=== PATIENT | male | born 1955 | race African-American/Black ===

== ENCOUNTER 2024-10-24 17:53 | Emergency (ER) | payer BC, OTHER ==
[2024-10-24 18:26] LABS: Absolute Basophils 0.1 K/uL (0-0.5); Absolute Eosinophils 0.3 K/uL (0-0.5); Absolute Lymphocytes (CBC) 1.5 K/uL (0.7-4.9); Absolute Monocytes 0.7 K/uL (0.1-1.3); Absolute Neutrophil 6.3 K/uL (1.8-8.0); Basophils % 0.9 % (0-1.3); Eosinophils % 3.9 % (0-4.4); Hematocrit 41.7 % (39.6-49.0); Hemoglobin 14.7 g/dL (13.6-17.9); MCH 28.6 pg (27.0-35.0); MCHC 35.2 g/dL (32.0-36.0); MCV 81.2 fL (80-100); MPV 7.9 fL (7.6-11.3); Monocytes % 7.6 % (3.3-12.3); Neutrophils % 70.6 % (41.7-73.7); Nucleated Red Blood Cells % 0.2 % (0-0); Platelets 423 thou/uL (152-406); RBC Red Blood Cell Count 5.13 M/uL (4.33-5.43); Red Cell Distribution Width 17.7 % (12.1-15.2)
[2024-10-24 18:33] LABS: PT Prothrombin Time 13.3 SECONDS (9.4-12.5); Protime INR 1.27
--- NOTE | 2024-10-24 18:41 | RAD REPORT ---
EXAM: CT brain without contrast HISTORY: Slurred speech. COMPARISON: None TECHNIQUE: Multiple contiguous axial images were obtained and a CT of the brain without contrast. Sagittal and coronal reformats were performed. Automated exposure control, adjustment of the mA and/or kV according to patient size, and/or itera tive reconstruction. Unless otherwise specified, incidental findings do not require dedicated imaging follow-u FINDINGS: An intracranial bleed is not seen Ventricles are normal caliber No extra-axial fluid collection noted 1 cm low-density area deep white matter left cerebrum probably old infarct. Mild additional low-density deep white matter bilaterally represent ischemic changes secondary to sma ll vessel disease No fluid within the visualized sinuses or mastoids noted. IMPRESSION: No acute intracranial abnormality noted. If the patient's symptoms persist MRI of the brain would be recommended. from the emergency room was notified at 6:37 PM October 24, 2024
[2024-10-24] MEDS ORDERED: FAMOTIDINE 20 MG/2 ML VIAL IV ONE (18:42)
[2024-10-24] MEDS ORDERED: FOLIC ACID 5 MG/ML VIAL ONE (18:43)
[2024-10-24] MEDS ORDERED: NA CHLORIDE 0.9% 1,000 ML ONE (18:43)
[2024-10-24 18:47] LABS: Albumin 3.5 g/dL (3.4-5.0); Anion Gap 9.6 mEq/L (5.0-15.0); Bilirubin Direct 0.2 mg/dL (0-0.2); Bilirubin Indirect, Calculated 0.2 mg/dL (0.2-0.8); Bilirubin Total 0.4 mg/dL (0.2-1.0); Globulin 3.6 g/dL (2.3-3.5); Magnesium 1.9 mg/dL (1.6-2.4); Potassium 3.6 mEq/L (3.5-5.1); Protein, Total 7.1 g/dL (6.4-8.2); Troponin High Sensitivity 5.3 pg/mL (<58.9)
--- NOTE | 2024-10-24 19:00 | RAD REPORT ---
EXAMINATION: CTA HEAD CLINICAL INDICATION: Slurred speech TECHNIQUE: Axial CT images were obtained through the head after 100 cc Isovue-370 intravenous contras t utilizing angiographic protocol with 3D post-processing (maximum intensity projection images, volume rendered images and/or shaded surface rendered images). One or more of the following dose red uction techniques were used: Automated exposure control, adjustment of the mA and/or kV according to patient size, and/or iterative reconstruction. Unless otherwise specified, incidental findings do not require dedicated imaging follow-up. COMPARISON: None FINDINGS: Distal internal carotid, basilar, anterior cerebral, middle cerebral and posterior cerebral arteries do not demonstrate a significant stenosis origin left posterior cerebral artery An aneurysm not noted. No large vessel occlusion IMPRESSION: No acute vascular abnormality displayed
--- NOTE | 2024-10-24 19:00 | RAD REPORT ---
EXAMINATION: Neck Angio CLINICAL INDICATION: Slurred speech TECHNIQUE: Axial CT images were obtained from the aortic arch to the skull base after intravenous adm inistration of 100 cc Isovue-370 utilizing angiographic protocol. Multiplanar reformats, as well as 3D post-processing (maximum intensity projection images, volume rendered images and/or shaded surface rendered images) were generated and reviewed. One or more of the following dose reduction techniques were used: Automated exposure control, adjustment of the mA and/or kV according to patient size, and/or iterative reconstruction. Unless otherwise specified, incidental findings do not require dedicated imaging follow-up. COMPARISON: No prior exam. FINDINGS: The visualized aortic arch and great vessels do not demonstrate a significant abnormality Mild plaque within the common carotid, internal carotid and external carotid arteries bilaterally. Vertebral arteries unremarkable No significant stenosis noted. A dissection is not seen. Methods for NASCET criteria: Mild stenosis, 0% to 49%; Moderate stenosis 50% to 69%; Severe stenosis, 70% to 99% IMPRESSION: No acute vascular abnormality displayed
--- NOTE | 2024-10-24 19:10 | EDPHYS ---
Physician Documentation [facility] Name: Brown Rios III Age: 69 yrs Sex: Male : 1955 Arrival Date: 10/24/2024 Time: 17:53 Bed 15 Private MD: ED Physician Cl Noland HPI: 10/24 18:24 This 69 yrs old Black Male presents to ER via EMS with complaints of Weakness, Slurred jose Speech. 18:24 The patient presents to the emergency department with weakness of the left lower jose extremity, right lower extremity, a speech or higher order brain function problem, difficulty standing, the patient cannot stand, the patient is off balance, difficult walking, the patient is off balance. Onset: The symptoms/episode began/occurred 1 day(s) ago. Context: occurred at home. Associated signs and symptoms: Pertinent positives: dizziness, weakness. Severity of symptoms: At their worst the symptoms were mild moderate in the emergency department the symptoms are unchanged. Severity of symptoms: At their worst the symptoms were. Patient's baseline: Neuro: alert and fully oriented. Current symptoms: Currently, the patient is not experiencing any symptoms, LEGS WEAK . The patient has experienced a previous episode, approximately 4 years ago. Historical: - Allergies: 17:54 PENICILLINS; db 17:54 Codeine; db - Home Meds: 17:54 escitalopram oxalate 20 mg oral tablet 1 tab daily [Active]; Ambien 10 mg Oral tablet db [Active]; Xanax 5 MG Oral [Active]; Dexilant 60 mg oral capsule,delayed release,biphasic [Active]; donepezil 5 mg oral tablet [Active]; carvedilol 12.5 mg oral tablet 2 tabs 2 times per day [Active]; Nifedipine ER Oral 30 mg twice a day [Active]; clopidogrel 75 mg oral tablet 1 tab once [Active]; atorvastatin 40 mg oral tablet every day at bedtime [Active]; memantine 10 mg oral tablet 2 tab once [Active]; aspirin 81 mg Oral capsule 2 caps daily [Active]; amitriptyline 25 mg Oral tablet 2 times per day [Active]; bupropion HCl 150 mg Oral Tablet, Extended Release 24 hr [Active]; - PMHx: 17:54 Hypertensive disorder; Diabetes mellitus; Atrial fibrillation; Transient cerebral db ischemia; - Immunization history:: Adult Immunizations unknown. - Infectious Disease History:: Denies. - Social history:: Smoking status: Patient reports the use of cigarette tobacco products, smokes one-half pack cigarettes per day. - Family history:: not pertinent. ROS: 18:20 Constitutional: Negative for fever, chills, and weight loss, Eyes: Negative for injury, jose pain, redness, and discharge, ENT: Negative for injury, pain, and discharge, Neck: Negative for injury, pain, and swelling, Cardiovascular: Negative for chest pain, palpitations, and edema, Respiratory: Negative for shortness of breath, cough, wheezing, and pleuritic chest pain, Abdomen/GI: Negative for abdominal pain, nausea, vomiting, diarrhea, and constipation, Back: Negative for injury and pain, : Negative for injury, bleeding, discharge, and swelling, MS/Extremity: Negative for injury and deformity, Skin: Negative for injury, rash, and discoloration, Psych: Negative for depression, anxiety, suicide ideation, homicidal ideation, and hallucinations, Allergy/Immunology: Negative for hives, rash, and allergies, Endocrine: Negative for neck swelling, polydipsia, polyuria, polyphagia, and marked weight changes, 18:20 Neuro: Positive for speech changes, weakness, of the right arm, right leg and left leg, Exam: 18:20 Constitutional: This is a well developed, well nourished patient who is awake, alert, jose and in no acute distress. Head/Face: Normocephalic, atraumatic. Eyes: Pupils equal round and reactive to light, extra-ocular motions intact. Lids and lashes normal. Conjunctiva and sclera are non-icteric and not injected. Cornea within normal limits. Periorbital areas with no swelling, redness, or edema. ENT: Nares patent. No nasal discharge, no septal abnormalities noted. Tympanic membranes are normal and external auditory canals are clear. Oropharynx with no redness, swelling, or masses, exudates, or evidence of obstruction, uvula midline. Mucous membranes moist. Neck: Trachea midline, no thyromegaly or masses palpated, and no cervical lymphadenopathy. Supple, full range of motion without nuchal rigidity, or vertebral point tenderness. No Meningismus. Chest/axilla: Normal chest wall appearance and motion. Nontender with no deformity. No lesions are appreciated. Cardiovascular: Regular rate and rhythm with a normal S1 and S2. No gallops, murmurs, or rubs. Normal PMI, no JVD. No pulse deficits. Respiratory: Lungs have equal breath sounds bilaterally, clear to auscultation and percussion. No rales, rhonchi or wheezes noted. No increased work of breathing, no retractions or nasal flaring. Abdomen/GI: Soft, non-tender, with normal bowel sounds. No distension or tympany. No guarding or rebound. No evidence of tenderness throughout. Back: No spinal tenderness. No costovertebral tenderness. Full range of motion. Male : Normal genitalia with no discharge or lesions. Skin: Warm, dry with normal turgor. Normal color with no rashes, no lesions, and no evidence of cellulitis. MS/ Extremity: Pulses equal, no cyanosis. Neurovascular intact. Full, normal range of motion., bilateral aka Psych: Awake, alert, with orientation to person, place and time. Behavior, mood, and affect are within normal limits. 18:20 ECG was reviewed by the Attending Physician. 18:20 Neuro: Orientation: appropriate for stated age, no acute changes, Mentation: is normal, appropriate for stated age, no acute changes, Memory: is normal, appropriate for stated age, no acute changes, Cranial nerves: grossly normal, is grossly normal based on the patient's age, no acute changes, Cerebellar function: is grossly normal, unable to test, Motor: moves all fours, strength is 4/5 in the right leg and left leg, Sensation: is normal, no obvious gross deficits, appropriate no acute changes, Gait: not tested. seizure activity, is not displayed by the patient, Vital Signs: 18:01 BP 122 / 69; Pulse 77; Resp 16; Temp 98; Pulse Ox 95% ; Weight 104.33 kg; Height 5 ft. db 11 in. ; 19:38 BP 130 / 90; Pulse 81; Resp 18; Pulse Ox 99% on R/A; rg5 20:00 BP 138 / 86; Pulse 84; Resp 18; Pulse Ox 96% on R/A; Pain 0/10; rg5 21:00 BP 144 / 83; Pulse 80; Resp 18; Pulse Ox 97% on R/A; rg5 22:01 BP 145 / 85; Pulse 79; Resp 17; Temp 98.3; Pulse Ox 96% on R/A; Pain 0/10; rg5 18:01 Body Mass Index 32.08 (104.33 kg, 180.34 cm) db 20:00 Pain Scale: Adult rg5 22:01 Pain Scale: Adult rg5 NIH Stroke Scale Scores: 18:10 NIHSS Score: 1 db 18:48 NIHSS Score: 5 jose [place] Coma Score: 18:20 Eye Response: spontaneous(4). Motor Response: obeys commands(6). Verbal Response: jose oriented(5). Total: 15. MDM: 18:02 Medical Screening Exam initiated jose 18:26 Data reviewed: vital signs, nurses notes, EMS record, lab test result(s), EKG, jose radiologic studies, CT scan, plain films. Consideration of Admission/Observation Escalation of care including admission/observation considered. I considered the following discharge prescriptions or medication management in the emergency department Medications were administered in the Emergency Department. See MAR. Independent interpretation of the following test(s) in the Emergency Department EKG: See my EKG interpretation above. Test considered but Not performed: MRI: NO MRI AVALIABLE. Historians other than the Patient: EMS: EMS WELL INFORMED. Family Member: AND DAUGHTER. Care significantly affected by the following chronic conditions: Diabetes, Hypertension, Obesity, CVA, A FIB. 18:48 ED course: NOT A TNK PATIENT , BEGAN YESTERDAY. [facility] 10/24 18:12 Order name: Basic Metabolic Panel; Complete Time: 19:02 [facility] 10/24 18:12 Order name: CBC with Diff; Complete Time: 19:02 [facility] 10/24 18:12 Order name: LFT's; Complete Time: 19:02 [facility] 10/24 18:12 Order name: Magnesium; Complete Time: 19:02 [facility] 10/24 18:12 Order name: NT PRO-BNP; Complete Time: 19:02 [facility] 10/24 18:12 Order name: PT-INR; Complete Time: 19:02 [facility] 10/24 18:12 Order name: Troponin HS; Complete Time: 19:02 [facility] 10/24 18:12 Order name: Lipase; Complete Time: 19:02 [facility] 10/24 18:12 Order name: Urinalysis w/ reflexes [facility] 10/24 18:21 Order name: Glucose, Ancillary Testing; Complete Time: 19:02 [facility] 10/24 18:12 Order name: XRAY Chest (1 view); Complete Time: 19:38 jose 10/24 18:12 Order name: CT Stroke Brain w/o Contrast; Complete Time: 19: [facility] 10/24 18:12 Order name: CT Head Angio; Complete Time: 19: [facility] 10/24 18:12 Order name: CT Neck Angio; Complete Time: 19:02 [facility] 10/24 18:12 Order name: Cardiac monitoring; Complete Time: 19:18 [facility] 10/24 18:12 Order name: EKG - Nurse/Tech; Complete Time: 19:18 [facility] 10/24 18:12 Order name: IV Saline Lock; Complete Time: 19:18 [facility] 10/24 18:12 Order name: Labs collected and sent; Complete Time: :18 [facility] 10/24 18:12 Order name: O2 Per Protocol; Complete Time: 19:18 [facility] 10/24 18:12 Order name: O2 Sat Monitoring; Complete Time: 19:18 [facility] EC:20 Rate is 76 beats/min. Rhythm is regular. QRS [place] is Normal. OK interval is normal. QRS jose interval is normal. QT interval is normal. No Q waves. T waves are Normal. T waves are Inverted in leads V5, V6. ST Segment is depressed in leads III, aVF. Clinical impression: NSR w/ Non-specific ST/T Changes. Administered Medications: 19:23 Drug: NS 0.9% IV 1000 ml IV at 1000 ml once; to be given as a bolus over 60 minutes rg5 Route: IV; Rate: 1000 ml; Site: right antecubital; 22:00 Follow up: IV Status: Completed infusion; IV Intake: 1000ml rg5 19:23 Drug: foLIC Acid IVPB 1 mg IVPB once Route: IVPB; Site: right antecubital; rg5 19:35 Follow up: IV Status: Completed infusion rg5 19:24 Drug: Famotidine IVP 20 mg IVP once; dilute with 10 mL 0.9% NaCl; give over 2 minutes rg5 Route: IVP; Site: right antecubital; 19:35 Follow up: Response: No adverse reaction rg5 19:36 Not Given (Patient Refused): [id number] mg PO once; GIVE IF NOT TAKEN TODAY rg5 19:51 Drug: Mucomyst - Acetylcysteine PO 600 mg PO once Route: PO; rg5 22:00 Follow up: Response: No adverse reaction rg5 19:51 Drug: Lovenox Sub-Q 40 mg Sub-Q once Route: Sub-Q; Site: right lower abdomen; rg5 22:00 Follow up: Response: No adverse reaction rg5 19:51 Drug: Aspirin PO Chewable Tablet 162 mg PO once Route: PO; rg5 21:59 Follow up: Response: No adverse reaction rg5 Point of Care Testing: Blood Glucose: 17:54 Blood Glucose: 110 mg/dL; db Ranges: Critical Glucose Levels:Adult <50 mg/dl or >400 mg/dl <40 mg/dl or >180 mg/dl Disposition Summary: 10/24/24 19:10 Transfer Ordered Notes: Transfer Location: [facility] jose Reason: Higher level of care jose Condition: Fair jose Problem: new jose Symptoms: are unchanged jose Accepting Physician: TO [facility](10/24/24 22:10) rg5 Diagnosis - Weakness jose - Aphasia jose - Cerebral infarction, unspecified - GREATER THAN 24 HR jose - Obesity, unspecified jose Forms: - Medication Reconciliation Form jose - SBAR form jose NIH Stroke Scale - NIH Stroke Score Date: 10/24/2024 Time: 18:10 Total Score = 1 10. Dysarthria (speech clarity - read or repeat words) - 1(Mild to Moderate) 11. Extinction and Inattention (visual/tactile/auditory/spatial/personal) - 0(No abnormality) 1a. Level of Consciousness (LOC) - 0(Alert) 1b. Level of Consciousness (LOC) (Month \T\ Age) - 0(Both) 1c. LOC Commands (Open \T\ Closes Eyes/Fiberglass Insulation Installer) - 0(Both) 2. Best Gaze (Lateral Gaze Paresis) - 0(Normal) 3. Visual Field Loss - 0(No visual loss) 4. Facial Palsy - 0(Normal) 5a. Left Arm: Motor (10-second hold) - 0(No drift) 5b. Right Arm: Motor (10-second hold) - 0(No drift) 6a. Left Leg: Motor (5-second hold - always test supine) - 0(No drift) 6b. Right Leg: Motor (5-second hold - always test supine) - 0(No drift) 7. Limb Ataxia (finger/nose \T\ heel/davis - test with eyes open) - 0(Absent) 8. Sensory Loss (pinprick arms/legs/face) - 0(Normal) 9. Best Language: Aphasia (description/naming/reading) - 0(No aphasia) Initials: [place] NIH Stroke Scale - NIH Stroke Score Date: 10/24/2024 Time: 18:48 Total Score = 5 10. Dysarthria (speech clarity - read or repeat words) - 0(Normal) 11. Extinction and Inattention (visual/tactile/auditory/spatial/personal) - 0(No abnormality) 1a. Level of Consciousness (LOC) - 0(Alert) 1b. Level of Consciousness (LOC) (Month \T\ Age) - 0(Both) 1c. LOC Commands (Open \T\ Closes Eyes/Fiberglass Insulation Installer) - 0(Both) 2. Best Gaze (Lateral Gaze Paresis) - 0(Normal) 3. Visual Field Loss - 0(No visual loss) 4. Facial Palsy - 0(Normal) 5a. Left Arm: Motor (10-second hold) - 0(No drift) 5b. Right Arm: Motor (10-second hold) - 0(No drift) 6a. Left Leg: Motor (5-second hold - always test supine) - 1(Drift) 6b. Right Leg: Motor (5-second hold - always test supine) - 1(Drift) 7. Limb Ataxia (finger/nose \T\ heel/davis - test with eyes open) - 2(Present in two limbs) 8. Sensory Loss (pinprick arms/legs/face) - 0(Normal) 9. Best Language: Aphasia (description/naming/reading) - 1(Mild to moderate aphasia) Initials: jose Signatures: Dispatcher [employer] EDCl Villeda MD MD cha Benton, Danielle, RN RN db Janak Flores RN RN rg5 Corrections: (The following items were deleted from the chart) 18:12 18:12 BASIC METABOLIC PANEL+C.LAB.BRZ ordered. EDMS EDMS 18:12 18:12 CBC+H.LAB.BRZ ordered. EDMS EDMS 18:12 18:12 HEPATIC FUNCTION+C.LAB.BRZ ordered. EDMS EDMS 18:12 18:12 MAGNESIUM+C.LAB.BRZ ordered. EDMS EDMS 18:12 18:12 PROBNP+C.LAB.BRZ ordered. EDMS EDMS 18:12 18:12 PROTIME (+INR)+COAG.LAB.BRZ ordered. EDMS EDMS 18:12 18:12 Troponin High Sensitivity+C.LAB.BRZ ordered. EDMS EDMS 18:12 18:12 LIPASE+C.LAB.BRZ ordered. EDMS EDMS 18:12 18:12 Urinalysis+U.LAB.BRZ ordered. EDMS EDMS 18:13 18:13 Chest Single View+RAD.RAD.BRZ ordered. EDMS EDMS 18:13 18:13 CT-STROKE BRAIN W/O CONTRAST+CT.RAD.BRZ ordered. EDMS EDMS 18:13 18:13 Head Angio+CT.RAD.BRZ ordered. EDMS EDMS 18:13 18:13 Neck Angio+CT.RAD.BRZ ordered. EDMS EDMS 22:10 19:10 [facility] jose rg5
--- NOTE | 2024-10-24 19:10 | ER ---
Nurse's Notes [facility] Name: Brown Rios III Age: 69 yrs Sex: Male : 1955 Arrival Date: 10/24/2024 Time: 17:53 Bed 15 Private MD: Diagnosis: Weakness;Aphasia;Cerebral infarction, unspecified-GREATER THAN 24 HR;Obesity, unspecified Presentation: 10/24 18:01 Chief complaint: EMS states: SLURRED SPEECH, LEFT SIDE AND HAND WEAKNESS X 1 DAY db GETTING WORSE. PER FAMILY HX OF STROKE IN PAST WITH RIGHT HAND WEAKNESS. PT CAN NORMALLY WALK BUT HAD DIFFICULTY WALKING TODAY. STARTED NEW MEDICATION BUPROPRION AND THEN SYMPTOMS STARTED. Coronavirus screen: Client denies travel out of the [place] in the last 14 days. At this time, the client does not indicate any symptoms associated with coronavirus-19. Ebola Screen: Patient negative for fever greater than or equal to 101.5 degrees Fahrenheit, and additional compatible Ebola Virus Disease symptoms Patient denies exposure to infectious person. Patient denies travel to an Ebola-affected area in the 21 days before illness onset. No symptoms or risks identified at this time. The patients blood glucose was checked before arriving to the hospital and was found to be normal. Initial Sepsis Screen: Does the patient meet any 2 criteria? No. Patient's initial sepsis screen is negative. Does the patient have a suspected source of infection? No. Patient's initial sepsis screen is negative. Risk Assessment: Do you want to hurt yourself or someone else? Patient reports no desire to harm self or others. Onset of symptoms was October 23, 2024. Care prior to arrival: IV initiated. 20 GA, in the right antecubital area, Glucose check: 102. 18:01 Method Of Arrival: EMS[facility] db 18:01 Acuity: KAMLA 2 db Triage Assessment: 17:54 The onset of the patients symptoms was October 23, 2024 at 12:00. General: Appears in db no apparent distress. comfortable, Behavior is calm, cooperative. Pain: Denies pain. Neuro: Level of Consciousness is awake, alert, obeys commands, Oriented to person, place, time, situation, Weakness in left hand(s) Speech is slurred, Facial symmetry appears normal, Pupils are PERRLA, pinpoint, Reports weakness. Stroke Activation: Symptom onset > 6 hours Physician: ED Attending; Name: ; Notified At: ; Arrived At: Physician: Mid-Level Provider; Name: ; Notified At: ; Arrived At: Physician: [not used]; Name: ; Notified At: ; Arrived At: Physician: [not used]; Name: ; Notified At: ; Arrived At: Physician: [not used]; Name: ; Notified At: ; Arrived At: Historical: - Allergies: 17:54 PENICILLINS; db 17:54 Codeine; db - Home Meds: 17:54 escitalopram oxalate 20 mg oral tablet 1 tab daily [Active]; Ambien 10 mg Oral tablet db [Active]; Xanax 5 MG Oral [Active]; Dexilant 60 mg oral capsule,delayed release,biphasic [Active]; donepezil 5 mg oral tablet [Active]; carvedilol 12.5 mg oral tablet 2 tabs 2 times per day [Active]; Nifedipine ER Oral 30 mg twice a day [Active]; clopidogrel 75 mg oral tablet 1 tab once [Active]; atorvastatin 40 mg oral tablet every day at bedtime [Active]; memantine 10 mg oral tablet 2 tab once [Active]; aspirin 81 mg Oral capsule 2 caps daily [Active]; amitriptyline 25 mg Oral tablet 2 times per day [Active]; bupropion HCl 150 mg Oral Tablet, Extended Release 24 hr [Active]; - PMHx: 17:54 Hypertensive disorder; Diabetes mellitus; Atrial fibrillation; Transient cerebral db ischemia; - Immunization history:: Adult Immunizations unknown. - Infectious Disease History:: Denies. - Social history:: Smoking status: Patient reports the use of cigarette tobacco products, smokes one-half pack cigarettes per day. - Family history:: not pertinent. Screenin:10 [facility] ED Fall Risk Assessment (Adult) History of falling in the last 3 months, db including since admission No falls in past 3 months (0 pts) Confusion or Disorientation No (0 pts) Intoxicated or Sedated No (0 pts) Impaired Gait Yes (1 pt) Mobility Assist Device Used No (0 pt) Altered Elimination No (0 pt) Score/Fall Risk Level 0 - 2 = Low Risk Oriented to surroundings, Maintained a safe environment. Abuse screen: Denies threats or abuse. Denies injuries from another. Nutritional screening: No deficits noted. Tuberculosis screening: No symptoms or risk factors identified. Assessment: 18:10 TNKase (Tenecteplase) Screening: Not Applicable. Reassessment: Patient appears in no db apparent distress at this time. Patient and/or family updated on plan of care and expected duration. Pain level reassessed. Patient is alert, oriented x 3, equal unlabored respirations, skin warm/dry/pink. General: Appears in no apparent distress. comfortable, Behavior is calm, cooperative. Neuro: Level of Consciousness is awake, alert, obeys commands, Oriented to person, place, time, situation. Respiratory: Airway is patent Respiratory effort is even, unlabored, Respiratory pattern is regular, symmetrical. 19:10 Wendel Swallow Protocol 3 oz Water Swallow Challenge:. Wendel Swallow Protocol Exclusion rg5 Criteria: Exclusion Criteria Result: Proceed Brief Cognitive Screen What is your name? Normal, Where are you right now? Normal, What year is it? Normal. Oral Mechanism Examination Facial Symmetry: Normal, Motion: Normal, Lip Closure: Normal, Oral Mechanism Result: Normal. Result: PASS MD Notified: Cl Noland MD. 19:10 VAN Scoring: Arm Drift: Patients demonstrates NO arm weakness. Patient is VAN Negative. rg5 Aphasia: No aphasia noted. Neglect: No neglect noted. Vital Signs: 18:01 BP 122 / 69; Pulse 77; Resp 16; Temp 98; Pulse Ox 95% ; Weight 104.33 kg; Height 5 ft. db 11 in. ; 19:38 BP 130 / 90; Pulse 81; Resp 18; Pulse Ox 99% on R/A; rg5 20:00 BP 138 / 86; Pulse 84; Resp 18; Pulse Ox 96% on R/A; Pain 0/10; rg5 21:00 BP 144 / 83; Pulse 80; Resp 18; Pulse Ox 97% on R/A; rg5 22:01 BP 145 / 85; Pulse 79; Resp 17; Temp 98.3; Pulse Ox 96% on R/A; Pain 0/10; rg5 18:01 Body Mass Index 32.08 (104.33 kg, 180.34 cm) db 20:00 Pain Scale: Adult rg5 22:01 Pain Scale: Adult rg5 Tyree Coma Score: 18:20 Eye Response: spontaneous(4). Motor Response: obeys commands(6). Verbal Response: jose oriented(5). Total: 15. NIH Stroke Scale Scores: 18:10 NIHSS Score: 1 db 18:48 NIHSS Score: 5 jose ED Course: 17:54 Arm band placed on Patient placed in an exam room. db 18:01 Patient arrived in ED. db 18:02 Cl Noland MD is Attending Physician. jose 18:04 Triage completed. db 18:10 Patient has correct armband on for positive identification. Bed in low position. Call db light in reach. Side rails up X2. Client placed on continuous cardiac and pulse oximetry monitoring. NIBP monitoring applied. air sampling and monitoring on. Pulse ox on. NIBP on. Warm blanket given. Pillow given. 18:[address] db 18:29 Bety Rolle, RN is Primary Nurse. db 18:30 Initial lab(s) drawn, by me, sent to lab. EKG done. Maintain EMS IV. Dressing intact. db Good blood return noted. Site clean \T\ dry. Gauge \T\ site: 20 G RAC. 18:35 CT Stroke Brain w/o Contrast In Process Unspecified. EDMS 18:52 CT Head Angio In Process Unspecified. EDMS 18:52 CT Neck Angio In Process Unspecified. EDMS 19:10 XRAY Chest (1 view) In Process Unspecified. EDMS 19:10 Patient has correct armband on for positive identification. Bed in low position. Call rg5 light in reach. Side rails up X2. Client placed on continuous cardiac and pulse oximetry monitoring. NIBP monitoring applied. air sampling and monitoring on. Pulse ox on. NIBP on. Door closed. Noise minimized. Moved to private room. Warm blanket given. Pillow given. 19:10 No provider procedures requiring assistance completed. rg5 19:23 Janak Flores, RN is Primary Nurse. rg5 21:13 Urinalysis w/ reflexes Sent. vc1 Administered Medications: 19:23 Drug: NS 0.9% IV 1000 ml IV at 1000 ml once; to be given as a bolus over 60 minutes rg5 Route: IV; Rate: 1000 ml; Site: right antecubital; 22:00 Follow up: IV Status: Completed infusion; IV Intake: 1000ml rg5 19:23 Drug: foLIC Acid IVPB 1 mg IVPB once Route: IVPB; Site: right antecubital; rg5 19:35 Follow up: IV Status: Completed infusion rg5 19:24 Drug: Famotidine IVP 20 mg IVP once; dilute with 10 mL 0.9% NaCl; give over 2 minutes rg5 Route: IVP; Site: right antecubital; 19:35 Follow up: Response: No adverse reaction rg5 19:36 Not Given (Patient Refused): [id number] mg PO once; GIVE IF NOT TAKEN TODAY rg5 19:51 Drug: Mucomyst - Acetylcysteine PO 600 mg PO once Route: PO; rg5 22:00 Follow up: Response: No adverse reaction rg5 19:51 Drug: Lovenox Sub-Q 40 mg Sub-Q once Route: Sub-Q; Site: right lower abdomen; rg5 22:00 Follow up: Response: No adverse reaction rg5 19:51 Drug: Aspirin PO Chewable Tablet 162 mg PO once Route: PO; rg5 21:59 Follow up: Response: No adverse reaction rg5 Medication: 18:10 VIS not applicable for this client. db Point of Care Testing: Blood Glucose: 17:54 Blood Glucose: 110 mg/dL; db Ranges: Intake: 22:00 IV: 1000ml; Total: 1000ml. rg5 Outcome: 19:10 ER care complete, transfer ordered by . jose 22:10 Patient left the ED. rg5 NIH Stroke Scale - NIH Stroke Score Date: 10/24/2024 Time: 18:10 Total Score = 1 10. Dysarthria (speech clarity - read or repeat words) - 1(Mild to Moderate) 11. Extinction and Inattention (visual/tactile/auditory/spatial/personal) - 0(No abnormality) 1a. Level of Consciousness (LOC) - 0(Alert) 1b. Level of Consciousness (LOC) (Month \T\ Age) - 0(Both) 1c. LOC Commands (Open \T\ Closes Eyes/Microarray Specialist) - 0(Both) 2. Best Gaze (Lateral Gaze Paresis) - 0(Normal) 3. Visual Field Loss - 0(No visual loss) 4. Facial Palsy - 0(Normal) 5a. Left Arm: Motor (10-second hold) - 0(No drift) 5b. Right Arm: Motor (10-second hold) - 0(No drift) 6a. Left Leg: Motor (5-second hold - always test supine) - 0(No drift) 6b. Right Leg: Motor (5-second hold - always test supine) - 0(No drift) 7. Limb Ataxia (finger/nose \T\ heel/davis - test with eyes open) - 0(Absent) 8. Sensory Loss (pinprick arms/legs/face) - 0(Normal) 9. Best Language: Aphasia (description/naming/reading) - 0(No aphasia) Initials: [place] NIH Stroke Scale - NIH Stroke Score Date: 10/24/2024 Time: 18:48 Total Score = 5 10. Dysarthria (speech clarity - read or repeat words) - 0(Normal) 11. Extinction and Inattention (visual/tactile/auditory/spatial/personal) - 0(No abnormality) 1a. Level of Consciousness (LOC) - 0(Alert) 1b. Level of Consciousness (LOC) (Month \T\ Age) - 0(Both) 1c. LOC Commands (Open \T\ Closes Eyes/Microarray Specialist) - 0(Both) 2. Best Gaze (Lateral Gaze Paresis) - 0(Normal) 3. Visual Field Loss - 0(No visual loss) 4. Facial Palsy - 0(Normal) 5a. Left Arm: Motor (10-second hold) - 0(No drift) 5b. Right Arm: Motor (10-second hold) - 0(No drift) 6a. Left Leg: Motor (5-second hold - always test supine) - 1(Drift) 6b. Right Leg: Motor (5-second hold - always test supine) - 1(Drift) 7. Limb Ataxia (finger/nose \T\ heel/davis - test with eyes open) - 2(Present in two limbs) 8. Sensory Loss (pinprick arms/legs/face) - 0(Normal) 9. Best Language: Aphasia (description/naming/reading) - 1(Mild to moderate aphasia) Initials: jose Signatures: Dispatcher [employer] Cl Rios MD MD cha Calcote, Vanessa, RN RN vc1 Bety Rolle RN RN db Janak Flores RN RN rg5
--- NOTE | 2024-10-24 19:20 | RAD REPORT ---
Procedure: Chest Single View HISTORY: Cough COMPARISON: 2013 FINDINGS: The lungs appear clear of acute infiltrate. No significant pleural effusion noted. The heart appears upper limits normal size. IMPRESSION: No acute abnormality is displayed.
[2024-10-24] MEDS ORDERED: ENOXAPARIN 40 MG/0.4 ML SQ ONE (19:42)
[2024-10-24] MEDS ORDERED: ASPIRIN 81 MG CHEWABLE TABLET ONE (19:42)
[2024-10-24] MEDS ORDERED: ACETYLCYST 6,000 MG/30 ML VIAL ONE (19:42)
[2024-10-24 21:21] LABS: Specific Gravity 1.021 (1.005-1.030); Sqamous Epithelial None Seen /HPF (None Seen); Urine Bacteria None Seen /HPF (<20); Urine Bilirubin NEGATIVE (Negative); Urine Blood Negative (Negative); Urine Clarity Clear (Clear); Urine Color Colorless (Yellow); Urine Crystals Unidentified Few /HPF (None Seen); Urine Culture Reflex Order NOT NEEDED; Urine Glucose NEGATIVE (Negative); Urine Ketones NEGATIVE (Negative); Urine Microscopic Reflex YN ORDER UMIC; Urine Nitrite NEGATIVE (Negative); Urine Protein NEGATIVE (Negative); Urine RBC None Seen /HPF (None Seen); Urine Urobilinogen Normal (Normal); Urine WBC <5 /HPF (<5)
[2024-10-24 22:48] VITALS: BP 145/85; TEMP 98.3; O2SAT 96
== END 2024-10-24 22:10 | disposition short-term general hospital (02) ==
LOC: ER 17:53
DX: I63.9 Cerebral infarction, unspecified (principal); R47.01 Aphasia; E66.9 Obesity, unspecified; R29.705 NIHSS score 5; I10 Essential (primary) hypertension; I48.91 Unspecified atrial fibrillation; F17.210 Nicotine dependence, cigarettes, uncomplicated
CPT/HCPCS: 96361; 85025; 81001; 80048; 36415; 83735; 85610; 82565; 82947; 80076; 84484; 83690; 83880; 70496; 70498; 70450; 71045; 96375; 96372; 96374; 99285; Q9967; J7608; J1650; J7030; 93005